=== PATIENT | male | born 1950 | race African-American/Black ===

== ENCOUNTER 2024-09-03 17:48 | Emergency (ER) | payer MEDICARE, OTHER ==
[~2024-09-03] VITALS: Ht 167.6 cm; Wt 90.7 kg
[2024-09-03 17:59] VITALS: TEMP 36.7; O2SAT 97
[2024-09-03] MEDS ORDERED: ONDANSETRON HCL 4MG/2ML INJ IV ONE (18:45)
[2024-09-03] MEDS ORDERED: SODIUM CHLORIDE 0.9% 500 ML IV ONE (18:45)
[2024-09-03] MEDS ORDERED: MAG-55 MT (19:34)
[2024-09-03] MEDS ORDERED: ONDA4TAB50 MT (19:34)
[2024-09-03] MEDS ORDERED: PANT40SU MT (19:34)
[2024-09-03] MEDS: ONDANSETRON 4MG ODT PO ONE (19:49)
[2024-09-03] MEDS: MAGNESIUM/ALUMINUM HYDROXIDE/SIMETHICONE 30ML UDC PO ONE (19:49)
[2024-09-03 19:55] VITALS: BP 152/73; PULSE 74; RESP 18; O2SAT 99
== END 2024-09-03 19:55 | disposition home or self-care (01) ==
LOC: ER 18:13
DX: K29.00 Acute gastritis without bleeding (principal); E11.9 Type 2 diabetes mellitus without complications; I10 Essential (primary) hypertension; Z79.899 Other long term (current) drug therapy
CPT/HCPCS: 99283; Q0162; J7040